=== PATIENT | male | born 1980 | race Two or more races ===

== ENCOUNTER 2023-05-30 11:06 | Observation (INO) ==
[2023-05-30] MEDS ORDERED: SODIUM CHLORIDE 0.9% 1000ML 1,000 ML IV ONE (11:48)
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
[2023-05-30 12:08] LABS: Basophils # (auto) 0.04 K/uL (0-0.2); Basophils % (auto) 0.5 %; Eosinophils # (auto) 0.01 K/uL (0-0.50); Eosinophils % (auto) 0.1 %; Hematocrit (blood only) 46.2 % (42.0-52.0); Hemoglobin 15.9 g/dl (14.0-18.0); Immature Granulocytes # (auto) 0.04 K/uL (0.01-0.20); Immature Granulocytes % (auto) 0.5 %; Lymphocytes # (auto) 1.22 K/uL (1.2-3.4); Lymphocytes % (auto) 15.7 %; Mean Corpuscular Hemoglobin 31.4 pg (25.0-34.0); Mean Corpuscular Hgb Conc 34.4 g/dL (32.0-36.0); Mean Corpuscular Volume 91.3 fL (80.0-100.0); Mean Platelet Volume 9.4 fL (9.4-12.4); Monocytes % (auto) 6.4 %; Neutrophils # (auto) 5.98 K/uL (1.40-6.50); Neutrophils % (auto) 76.8 %; Platelet Count 295 K/uL (130-400); RDW Coefficient of Variation 12.6 % (11.5-14.5); RDW Standard Deviation 41.9 fL (36.4-46.3); Red Blood Count 5.06 M/uL (4.70-6.10); White Blood Count 7.79 K/ul (4.8-10.8)
[2023-05-30] MEDS ORDERED: SODIUM CHLORIDE 0.65% NA SOLN 45 ML (OCEAN) NAE PRN ×2 (12:17→13:24)
[2023-05-30 12:30] LABS: INR 1.1 (0.9-1.1); Partial Thromboplastin Ratio 0.9; Partial Thromboplastin Time 24.5 Seconds (21.0-31.0); Prothrombin Time 11.5 Seconds (9.0-12.0)
[2023-05-30 12:34] LABS: Albumin Globulin Ratio 1.8 (0.9-2); Albumin Level 4.5 gm/dl (3.4-5.0); BUN Creatinine Ratio 17.6 (10-20); Bilirubin,Total 0.9 mg/dl (0.2-1.0); Calcium 9.6 mg/dl (8.6-10.3); Creatinine Clr Calc Pharmacy 73.2 ml/min; Est GFR (African American) 72.8 ml/min; Est GFR (Non-African American) 62.8 ml/min; Globulin 2.5 gm/dl (2.5-4.0); Potassium 3.8 mmol/L (3.5-5.1); Troponin I High Sensitivity 5.9 pg/ml (0-20)
--- NOTE | 2023-05-30 12:34 | XRay Report ---
SINGLE VIEW CHEST CLINICAL HISTORY: Atypical chest pain. Dizziness. FINDINGS: An AP, portable, upright chest radiograph is obtained. No prior studies are available for c omparison at the time of dictation. The cardiomediastinal silhouette is unremarkable. The lungs and p leural spaces are clear. No pneumothorax is seen. The bony thorax is grossly intact. IMPRESSION: No acute cardiopulmonary abnormality. ACT 112: Negative or not required by law. Electronically signed by: Raymundo Aparicio M.D. 05/30/2023 12:33 PM
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
[2023-05-30] MEDS ORDERED: NITROGLYCERIN SL 0.4 MG/TAB TAB SL PRN (17:45)
[2023-05-30] MEDS ORDERED: ONDANSETRON INJ 2 MG/ML 2 ML VIAL IV PRN (17:45)
[2023-05-30] MEDS ORDERED: MoRPHine SULFATE 2 MG/ML CARP IV PRN (17:45)
[2023-05-30] MEDS ORDERED: ACETAMINOPHEN 325 MG TAB PO PRN (17:45)
[2023-05-30] MEDS ORDERED: D5W AND LACTATED RINGERS 1,000 ML IV ONE (23:00)
[2023-05-31 07:33] LABS: Hematocrit (blood only) 43.2 % (42.0-52.0); Hemoglobin 15.4 g/dl (14.0-18.0); Mean Corpuscular Hemoglobin 32.6 pg (25.0-34.0); Mean Corpuscular Hgb Conc 35.6 g/dL (32.0-36.0); Mean Corpuscular Volume 91.3 fL (80.0-100.0); Mean Platelet Volume 9.6 fL (9.4-12.4); Platelet Count 264 K/uL (130-400); RDW Coefficient of Variation 12.7 % (11.5-14.5); Red Blood Count 4.73 M/uL (4.70-6.10); White Blood Count 5.44 K/ul (4.8-10.8)
[2023-05-31 08:17] LABS: Estimated Average Glucose 97 mg/dl
[2023-05-31 08:31] LABS: BUN Creatinine Ratio 16.2 (10-20); Calcium 8.6 mg/dl (8.6-10.3); Chol HDL Ratio 3.5 (0-5); Creatinine Clr Calc Pharmacy 92.1 ml/min; Est GFR (African American) 106.9 ml/min; Est GFR (Non-African American) 92.2 ml/min; Magnesium 2.1 mg/dl (1.7-2.4); Potassium 3.8 mmol/L (3.5-5.1)
[2023-05-31] MEDS ORDERED: buPROPion XL 300 MG TABCR PO SCH (09:00)
[2023-05-31] MEDS ORDERED: ASPIRIN 81 MG ECTAB PO SCH (09:00)
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
--- NOTE | 2023-05-31 18:57 | Hospitalist Progress Note ---
Date of Service May 31, 2023 Assessment & Plan (1) Chest pain: Plan: Acute coronary syndrome ruled out Troponins x3 negative EKG: No signs of acute ischemia or infarct Status post stress echo: Normal exercise stress echocardiogram noted Triglyceride 112, cholesterol 139, LDL 77, HDL 40 A1c 5.0 Advised to follow-up with primary care physician in 1 week (2) Hypoglycemia: Plan: Likely secondary to extreme exertion in the setting of Mounjaro use --Patient denies hypoglycemic symptoms at home --BSG in the ER in the 40s to 50s Resolved --Advised to continue 3 well-balanced meals per day And to discuss discontinuation of Mounjaro with his primary care physician (3) Depression: Plan: - May continue wellbutrin DVT ppx - teds, scds CODE: Full code Dispo: Discharge to home Follow-up with primary care physician in 1 week plan of care discussed with patient in detail and at length all questions answered he is understanding, agreeable, comfortable with the plan of care Admission and Anticipated Discharge Date Admission Date: May 30, 2023 Subjective Follow-up for chest pain, etc. Seen status post stress test Just finished his lunch In good spirits, comfortable States he feels much better overall No recurrence of chest pain Denies shortness of breath, palpitations, dizziness Ambulating with no problems No fevers or chills States he is ready to be discharged today Review of Systems Review of Systems: all noted and negative except for above Physical Exam Physical Exam: General- oriented x 3, not in distress, speaks in sentences with no effort or accessory muscle use Eyes- anicteric Neck- no JVD Lungs- clear breath sounds bilaterally, no rales/wheezes Heart- normal rate, regular rhythm; no murmurs Abdomen- normal bowel sounds, nondistended, soft, nontender Extremities- no pretibial edema, no calf tenderness Neuro- alert, oriented x 3; no gross focal neurologic deficits Skin- warm & dry Results & Data Results & Data Vital Signs (Past 12 Hours) Vital Signs Temp Pulse Resp BP Pulse Ox O2 Del Method 05/31/23 12:53 36.6 C 60 18 128/82 98 05/31/23 12:20 36.6 C 60 18 128/82 98 Room Air 05/31/23 07:40 36.6 C 72 19 115/75 93 Room Air all noted and reviewed including below (1) Chest pain Chest pain type: precordial pain Qualified Code(s): R07.2 - Precordial pain
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
--- NOTE | 2023-06-01 22:30 | Electrocardiogram Report ---
Test Reason : Blood Pressure : / mmHG Vent. Rate : 078 BPM Atrial Rate : 078 BPM P-R Int : 200 ms QRS Dur : 090 ms QT Int : 388 ms P-R-T Axes : 042 -62 024 degrees QTc Int : 442 ms Normal sinus rhythm Left axis deviation Septal infarct , age undetermined Abnormal ECG No previous ECGs available Confirmed by Jerod Montanez ([id number]) on 06/01/2023 10:30:26 PM Referred By: REFERRED SELF Confirmed By:Jerod Montanez
--- NOTE | 2023-06-01 22:33 | Electrocardiogram Report ---
Test Reason : Blood Pressure : / mmHG Vent. Rate : 072 BPM Atrial Rate : 072 BPM P-R Int : 208 ms QRS Dur : 092 ms QT Int : 402 ms P-R-T Axes : 040 -61 017 degrees QTc Int : 440 ms Normal sinus rhythm Left axis deviation Septal infarct (cited on or before 30-MAY-2023) Abnormal ECG When compared with ECG of 30-MAY-2023 11:13, No significant change was found Confirmed by Jerod Montanez ([id number]) on 06/01/2023 10:33:03 PM Referred By: REFERRED SELF Confirmed By:Jerod Montanez
--- NOTE | 2023-06-02 22:55 | Electrocardiogram Report ---
Test Reason : Blood Pressure : / mmHG Vent. Rate : 055 BPM Atrial Rate : 055 BPM P-R Int : 230 ms QRS Dur : 106 ms QT Int : 446 ms P-R-T Axes : 056 -77 029 degrees QTc Int : 426 ms Sinus bradycardia with 1st degree A-V block Possible Septal infarct Left anterior fascicular block Abnormal ECG When compared with ECG of 30-MAY-2023 11:48, No significant change was found Confirmed by Jerod Montanez ([id number]) on 06/02/2023 10:55:12 PM Referred By: REFERRED SELF Confirmed By:Jerod Montanez
== END 2023-05-31 13:16 | disposition home or self-care (01) ==
LOC: 2S 11:06 → ED 11:06 → SUATTDRO 13:51 → 2S 15:41